=== PATIENT | male | born 1990 | race Caucasian/White ===

== ENCOUNTER 2016-07-17 15:55 | Emergency (ER) | END 2016-07-17 16:24 | disposition left against medical advice (07) | LOC: UCCORT 15:55 | DX: Z53.21 Procedure and treatment not carried out due to patient leaving prior to being seen by health care provider (principal) ==

== ENCOUNTER 2018-08-22 12:28 | Emergency (ER) | payer OTHER ==
[2018-08-22 13:08] VITALS: BP 160/79
--- NOTE | 2018-08-22 13:19 | UC ---
Dental HPI - HPI Summary HPI Summary: 28-year-old male presents with 2-3 day history of dental pain. Complaints of pain to right upper bicuspid and right lower molar. States he does not have a dentist appointment scheduled at this time. Denies fever, chills, facial swelling, trismus, drainage, dysphasia, or difficulty breathing. - History of Current Complaint Chief Complaint: UCDentalProblem Stated Complaint: DENTAL PAIN Time Seen by Provider: 08/22/18 13:04 Hx Obtained From: Patient Pain Intensity: 7 - Allergies/Home Medications Allergies/Adverse Reactions: Allergies Allergy/AdvReac Type Severity Reaction Status Date / Time No Known Allergies Allergy Verified 08/22/18 13:08 Home Medications: Home Medications Losartan TAB* [Cozaar TAB*] 25 mg PO DAILY 08/22/18 [History Confirmed 08/22/18] Metoprolol Tartrate TAB* [Lopressor TAB*] 50 mg PO DAILY 08/22/18 [History Confirmed 08/22/18] PMH/Surg Hx/FS Hx/Imm Hx Cardiovascular History: Hypertension - Surgical History Surgical History: None - Family History Known Family History: Positive: Non-Contributory - Social History Occupation: Employed Full-time Lives: With Family Alcohol Use: None Substance Use Type: None Smoking Status (MU): Never Smoked Tobacco Review of Systems All Other Systems Reviewed And Are Negative: Yes Constitutional: Negative: Fever, Chills ENT: Positive: Dental Pain. Negative: Sore Throat, Other - Trismus Respiratory: Positive: Negative Cardiovascular: Positive: Negative Gastrointestinal: Positive: Negative Genitourinary: Positive: Negative Musculoskeletal: Positive: Negative Neurological: Positive: Negative Is Patient Immunocompromised?: Yes Physical Exam - Summary Physical Exam Summary: GENERAL APPEARANCE: Well developed, well nourished, alert and cooperative, and appears to be in no acute distress. EYES: Conjunctiva clear. No drainage. PERRL, EOM intact. Vision is grossly intact. EARS: External auditory canals and tympanic membranes clear, hearing grossly intact. NOSE: No nasal discharge. THROAT: Pharynx normal. No tonsilar inflammation, swelling, exudate, or lesions. Uvula midline. Overall poor dentition with several teeth in various levels of decay. There is a large dental xu to the right upper first bicuspid with some mild gingival erythema without induration or fluctuance. NECK: Neck supple, non-tender without lymphadenopathy. CARDIAC: Normal S1 and S2. No S3, S4 or murmurs. Rhythm is regular. There is no peripheral edema, cyanosis or pallor. Extremities are warm and well perfused. Capillary refill is less than 2 seconds. Peripheral pulses intact. LUNGS: Clear to auscultation without rales, rhonchi, wheezing or diminished breath sounds. ABDOMEN: Positive bowel sounds. Soft, nondistended, nontender. No guarding or rebound. No masses or hepatosplenomegally. MUSKULOSKELETAL: ROM intact to all extremities. No joint erythema or tenderness. Normal muscular development. Normal gait. SKIN: Skin normal color, texture and turgor with no lesions or eruptions. Triage Information Reviewed: Yes Vital Signs: Initial Vital Signs Temp 97.5 F 08/22/18 13:02 Pulse 74 08/22/18 13:02 Resp 18 08/22/18 13:02 BP 160/79 08/22/18 13:02 Pulse Ox 100 08/22/18 13:02 Vital Signs Reviewed: Yes Dental Complaint Course/Dx - Course Course Of Treatment: 28-year-old male presents with 2-3 day history of dental pain. Complaints of pain to right upper bicuspid and right lower molar. States he does not have a dentist appointment scheduled at this time. Denies fever, chills, facial swelling, trismus, drainage, dysphasia, or difficulty breathing. Afebrile. Vital signs stable. Exam reveals overall poor dentition with several teeth in various levels of decay. There is a large dental xu to the right upper first bicuspid with some mild gingival erythema without induration or fluctuance. The right lower second molar has significant decay and wear down to the gumline with gingival erythema without induration or fluctuance. Will treat for possible dental infection with Augmentin 875 mg twice a day 10 days and provided him naproxen 500 mg twice a day as needed for pain. He is to make an appointment with his dentist at next available. Anticipatory guidance warning symptoms are reviewed with the patient. Verbalizes understanding and agrees with plan of care. - Differential Dx/Diagnosis Differential Diagnosis/Dx: Dental Abscess, Dental Caries, Fractured Tooth, Odontogenic Pain, Peridontic Disease Provider Diagnosis: Pain, dental Discharge - Sign-Out/Discharge Documenting (check all that apply): Patient Departure All imaging exams completed and their final reports reviewed: No Studies - Discharge Plan Condition: Stable Disposition: HOME Prescriptions: Amoxicillin/Clavulanate TAB* [Augmentin TAB 875*] 875 mg PO BID #20 tab Naproxen [Naproxen 500 mg tab] 500 mg PO Q12HR #30 tablet Patient Education Materials: Toothache (ED) Referrals: Rabia Marrero MD [Primary Care Provider] - Additional Instructions: Start Augmentin 875 mg 1 tab twice a day for 10 days. Take naproxen 500 mg 1 tab every 12 hours as needed for pain. Be sure to rinse your mouth out with a warm salt water solution after every time you eat to remove any debris. Make an appointment with your dentist at next available appointment. Seek immediate medical attention in the emergency room if you develop fever greater than 100.5 F, you are unable to open of close your mouth, are unable to swallow, have difficulty breathing, or any worsening of symptoms. - Billing Disposition and Condition Condition: STABLE Disposition: Home
== END 2018-08-22 13:32 | disposition home or self-care (01) ==
LOC: UCCORT 12:28
DX: K08.89 Other specified disorders of teeth and supporting structures (principal); I10 Essential (primary) hypertension; Z79.899 Other long term (current) drug therapy
CPT/HCPCS: 99212; G0463

== ENCOUNTER 2018-11-05 09:05 | Emergency (ER) | payer OTHER ==
--- OUTSIDE RECORDS SUMMARY | 2018-11-05 09:18 | XMS REPORT | Continuity of Care Document ---
:1990 External Reference #:[id number] Author Name Mark Ridley N.P. Address [address] [facility] [address] [place] [address] Care Team Providers Name Role Phone Rabia Marrero MD Care Team Information Mail Caller Unavailable Payers Date Identification Numbers Payment Provider Subscriber Effective: Policy Number: [id number] Sanjiv Evans 2018 Group Name: [employer] [address] PayID: [id number] [place] [address] Effective: 2015 Policy Number: Sanjiv Care Roderick Evans [id number] Expires: 2018 PayID: [id number] [address] [place] [address] Expires: 2018 Policy Number: Medicaid/[facility] Ricci Evans [id number] PayID: [id number] [address] [place] [address] Family History Date Family Member(s) Observation Comments Father 46 Father No Current Problems Mother due to At Age 40 () Mother due to Pneumonia () Children None First Brother 19 First Brother Asthma Social History Type Date Description Comments Sex Unknown Marital Status Legal Status: Never Tobacco Use Start: Unknown Current Smokeless Tobacco User, Uses 4 Times Daily ETOH Use Occasionally consumes alcohol Tobacco Use Start: Unknown Patient has never smoked Allergies, Adverse Reactions, Alerts Description No Known Drug Allergies Medications Active Medications SIG Qnty Indications Ordering Date Provider Atorvastatin Calcium 1 by mouth every 30tabs E78.2 Rabia Marrero, 2018 day M.D. 10mg Tablets Nicorette chew 1 piece by 120units F17.200 Rabia Marrero, 09/30/2018 4mg Gum mouth 24 times M.D. per day for 30 minute as needed for Chewing Tobacco cessation Claritin 1 by mouth every 30tabs H65.23 [facility] 05/06/2018 10mg Tablets day M.D. Norvasc take one tablet 30tabs I10 [facility], 06/26/2017 10mg Tablets by mouth every M.D. day Omeprazole 1 by mouth every 90caps K21.0 [facility], 09/05/2015 40mg day M[address]D. Capsules DR Metoprolol Succinate 1 by mouth every 30tabs I10 [facility] ., ER day M.D. 100mg Tablets ER 24HR Fluticasone spray one spray 48gm J30.9 [facility], Propionate in each nostril M.D. 50mcg/Act two times a day Suspension History Medications Mucinex 1 tab by mouth 30tabs J18.0 [facility] 05/22/2018 - 600mg Tablets ER twice a day M., M.D. 09/29/2018 12HR Benzonatate 1 cap by mouth 60caps J18.0 [facility] 05/22/2018 - 100mg every 4 hours as M., M.D. 09/29/2018 Capsules needed Azithromycin 1 tab by mouth 10tabs J18.0 [facility] 05/22/2018 - 500mg every day x 10 M., M.D. 09/29/2018 Tablets days Azithromycin z antonio uad 6tabs J20.9 [facility] 05/06/2018 - 250mg M., M.D. 05/10/2018 Tablets Benzonatate 1 cap by mouth 60caps R05 [facility] 05/06/2018 - 100mg every 4 hours as M., M.D. 09/29/2018 Capsules needed AT Night Mucinex 1 tab by mouth 30tabs J20.9 [facility] 05/06/2018 - 600mg Tablets ER twice a day M., M.D. 09/29/2018 12HR Amoxicillin 2 by mouth twice 40tabs K02.9 [facility] 10/13/2015 - 500mg Tablets a day M., M.D. 10/23/2015 Hydroxyzine HCL 1 tsp by mouth 75ml F41.9 [facility] 09/12/2015 - 25mg/ml three times a M., M.D. 09/12/2015 Solution day as needed Hydroxyzine HCL 1-2 tab by mouth F41.9 [facility] 09/12/2015 - 10mg every day as M., M.D. 09/12/2015 Tablets needed Hydroxyzine HCL 1-2 tsp by mouth 473ml F41.9 [facility] 09/12/2015 - 10mg/5ML three times a M., M.D. 06/05/2017 Solution day as needed Vital Signs Date Vital Result Comment 10/28/2018 8:51am BP Systolic 124 mmHg BP Diastolic 72 mmHg Height 68 inches 5'8" Weight 189.00 lb BMI (Body Mass Index) 28.7 kg/m2 Heart Rate 66 /min Respiratory Rate 18 /min 09/30/2018 11:18am BP Systolic 126 mmHg BP Diastolic 72 mmHg Height 68 inches 5'8" Weight 189.00 lb BMI (Body Mass Index) 28.7 kg/m2 Heart Rate 63 /min Respiratory Rate 18 /min 05/22/2018 11:08am BP Systolic 128 mmHg BP Diastolic 78 mmHg Height 68 inches 5'8" Weight 200.00 lb BMI (Body Mass Index) 30.4 kg/m2 Heart Rate 121 /min Body Temperature 100.3 F Respiratory Rate 16 /min 05/06/2018 1:40pm BP Systolic 142 mmHg BP Diastolic 82 mmHg Height 68 inches 5'8" Weight 203.00 lb BMI (Body Mass Index) 30.9 kg/m2 Heart Rate 102 /min Body Temperature 98.1 F Respiratory Rate 16 /min 01/14/2018 2:00pm BP Systolic 146 mmHg BP Diastolic 88 mmHg Height 68 inches 5'8" Weight 203.00 lb BMI (Body Mass Index) 30.9 kg/m2 Heart Rate 82 /min Respiratory Rate 16 /min 10/06/2017 8:59am BP Systolic 154 mmHg BP Diastolic 92 mmHg Height 68 inches 5'8" Weight 191.00 lb BMI (Body Mass Index) 29.0 kg/m2 Heart Rate 102 /min Respiratory Rate 16 /min 09/25/2017 1:07pm BP Systolic 160 mmHg BP Diastolic 110 mmHg Height 68 inches 5'8" Weight 188.00 lb BMI (Body Mass Index) 28.6 kg/m2 Heart Rate 70 /min Respiratory Rate 18 /min 09/08/2017 8:01am BP Systolic 140 mmHg BP Diastolic 82 mmHg Height 68 inches 5'8" Weight 190.00 lb BMI (Body Mass Index) 28.9 kg/m2 Heart Rate 64 /min Respiratory Rate 18 /min 08/28/2017 2:45pm BP Systolic 142 mmHg BP Diastolic 100 mmHg BP Systolic Recheck 142 mmHg P.82 BP Diastolic Recheck 98 mmHg P.82 Height 68 inches 5'8" Weight 190.00 lb BMI (Body Mass Index) 28.9 kg/m2 Heart Rate 99 /min Respiratory Rate 18 /min 07/03/2017 1:16pm BP Systolic 180 mmHg BP Diastolic 108 mmHg BP Systolic Recheck 162 mmHg BP Diastolic Recheck 92 mmHg Height 68 inches 5'8" Weight 170.00 lb BMI (Body Mass Index) 25.8 kg/m2 Heart Rate 88 /min Respiratory Rate 18 /min 06/26/2017 1:09pm BP Systolic 160 mmHg BP Diastolic 110 mmHg BP Systolic Recheck 160 mmHg BP Diastolic Recheck 100 mmHg Height 68 inches 5'8" Weight 170.00 lb BMI (Body Mass Index) 25.8 kg/m2 Heart Rate 72 /min Respiratory Rate 18 /min 10/13/2015 10:19am Weight 171.00 lb Respiratory Rate 18 /min 09/12/2015 9:00am Weight 169.00 lb Respiratory Rate 18 /min 07/20/2015 8:52am BP Systolic 192 mmHg Machine BP Diastolic 103 mmHg Machine BP Systolic Recheck 170 mmHg Manual 180/100- Manual BP Diastolic Recheck 84 mmHg Manual 180/100- Manual Height 67 inches 5'7" Weight 179.00 lb BMI (Body Mass Index) 28.0 kg/m2 Heart Rate 101 /min Body Temperature 97.1 F Respiratory Rate 18 /min Results Test Date Facility Test Result H/L Range Note CBC With Diff 09/30/2018 [facility] WBC 7.6 10*3/uL (4.1-11.0) [address] ([facility])- - RBC 5.38 10*6/uL (4.60-6.10) HGB 16.2 g/dL (13.5-18.0) HCT 47.6 % (41.0-53.0) MCV 88.5 fL (80.0-95.0) MCH 30.1 pg (27.0-32.0) MCHC 34.0 g/dL (32.0-36.0) RDW 13.3 % (10.5-14.5) PLT 240 10*3/uL (150-450) MPV 10.7 fL (7.1-10.7) Neut % 64.1 % (35.0-75.0) Lymph % 21.9 % (16.0-52.0) Rabun % 8.6 % High (0.0-8.0) Eos % 5.0 % (0.0-5.0) Baso % 0.4 % (0.0-4.0) Neut # 4.9 10*3/uL (1.8-7.7) Lymph # 1.7 10*3/uL (1.2-4.8) Rabun # 0.7 10*3/uL (0.0-0.8) Eos # 0.4 10*3/uL (0.0-0.5) Baso # 0.0 10*3/uL (0.0-0.2) CMP 09/30/2018 [facility] Sodium 142 mmol/L (136-145) [address] (607)- - Potassium 4.0 mmol/L (3.6-5.2) Chloride 107 mmol/L (100-108) Co2 27 mmol/L (22-31) Anion Gap 8 mmol/L (7-16) Urea Nitrogen 13 mg/dL (7-24) Creatinine 1.02 mg/dL (0.80-1.30) BUN/Creat Ratio 12.7 RATIO (10.0-20.0) Glucose 64 mg/dL Low (70-99) Calcium 9.3 mg/dL (8.4-10.2) Total Protein 7.4 g/dL (6.4-8.2) Albumin 4.3 g/dL (3.5-4.6) Globulin 3.1 g/dL (2.7-4.3) Alb/Glob Ratio 1.4 RATIO Alkaline Phosphatase 80 U/L (45-117) Bilirubin,Total 0.5 mg/dL (0.0-1.0) Ast (Sgot) 16 U/L (11-39) Alt (SGPT) 24 U/L (12-78) GFR >60 ml/min/1.73m2 (>59) GFR ( Amer) >60 ml/min/1.73m2 (>59) GFR Interpretation <SEE NOTE> 1 Laboratory test 09/30/2018 [facility] Magnesium 2.2 mg/dL (1.7-2.4) finding [address] [facility] (607)- - TSH,Ultrasensitive @ 0.627 mIU/L (0.360-4.170) Free Thyroxine @ 0.88 ng/dL (0.76-1.46) Lipid Extended Panel 09/30/2018 [facility] Appearance CLEAR (Clear) [address] (607)- - Cholesterol @ 202 mg/dL High (0-200) Triglyceride @ 126 mg/dL (30-200) HDL Cholesterol @ 44 mg/dL (>40) 2 Chol/HDL Ratio 4.6 RATIO 3 Direct LDL @ 135 mg/dL High (<130) 4 VLDL (Calc) 23 mg/dL (0-30) Laboratory test 09/30/2018 [facility] 25 Hydroxy Vit D 39 ng/mL (31- 100) 5 finding [address] [facility] @ (607)- - Hemoglobin A1c 09/30/2018 [facility] Hemoglobin A1c @ 5.4 % (4.0-6.0) 6 [address] (607)- - Est Average Glucose 108 mg/dL Laboratory test 09/08/2017 [facility] Vitamin D Total 38.8 ng/mL N 20 -50 7 finding 25(Oh) Lipid Profile 09/08/2017 [facility] Triglycerides 90 mg/dL 8 (Trig/Chol/HDL) Cholesterol 188 mg/dL 9 HDL Cholesterol 49.3 mg/dL 10 LDL Cholesterol 121 mg/dL 11 Laboratory test 09/08/2017 [facility] TSH (Thyroid 2.12 mcIU/mL N 0.34-5.60 12 finding Stim Horm) Comp Metabolic 09/08/2017 [facility] Sodium 140 mmol/L N 139-145 Panel Potassium 4.1 mmol/L N 3.5-5.0 Chloride 102 mmol/L N 101-111 Co2 Carbon Dioxide 27 mmol/L N 22-32 Anion Gap 11 mmol/L N 2-11 Glucose 88 mg/dL N 70-100 Blood Urea Nitrogen 10 mg/dL N 6-24 Creatinine 0.91 mg/dL N 0.67-1.17 BUN/Creatinine Ratio 11.0 N 8-20 Calcium 9.8 mg/dL N 8.6-10.3 Total Protein 7.3 g/dL N 6.4-8.9 Albumin 4.6 g/dL N 3.2-5.2 Globulin 2.7 g/dL N 2-4 Albumin/Globulin Ratio 1.7 N 1-3 Total Bilirubin 0.30 mg/dL N 0.2-1.0 Alkaline Phosphatase 81 U/L N 34-104 Alt 29 U/L N 7-52 Ast 26 U/L N 13-39 Egfr Non- 99.2 >60 Egfr 127.6 >60 13 CBC Auto Diff 09/08/2017 [facility] White Blood Count 9.9 10^3/uL N 3.5-10.8 Red Blood Count 5.62 10^6/uL High 4.0-5.4 Hemoglobin 17.6 g/dL N 14.0-18.0 Hematocrit 52 % N 42-52 Mean Corpuscular Volume 92 fL N 80-94 Mean Corpuscular Hemoglobin 31 pg N 27-31 Mean Corpuscular HGB Conc 34 g/dL N 31-36 Red Cell Distribution Width 14 % N 10.5-15 Platelet Count 286 10^3/uL N 150-450 Mean Platelet Volume 9.7 um3 N 7.4-10.4 Abs Neutrophils 5.9 10^3/uL N 1.5-7.7 Abs Lymphocytes 1.9 10^3/uL N 1.0-4.8 Abs Monocytes 0.9 10^3/uL High 0-0.8 Abs Eosinophils 1.1 10^3/uL High 0-0.6 Abs Basophils 0.1 10^3/uL N 0-0.2 Abs Nucleated RBC 0 10^3/uL Granulocyte % 60.1 % N 38-83 Lymphocyte % 19.0 % Low 25-47 Monocyte % 9.3 % High 0-7 Eosinophil % 11.0 % High 0-6 Basophil % 0.6 % N 0-2 Nucleated Red Blood Cells % 0.1 1 NORMAL KIDNEY FUNCTION OR MILD DISEASE - GFR >OR=60 CHRONIC KIDNEY DISEASE - GFR 15 - 59 RENAL FAILURE - GFR <15 Est. GFR calculation based on the MDRD study equation, which assumes a steady state for creatinine. Est. GFR should not be used for medication dosing. 2 PER NCEP ATP III GUIDELINES: RESULTS LOWER THAN 40 MG/DL ARE SUGGESTIVE OF INCREASED RISK FOR CORONARY ARTERY DISEASE. RESULTS > OR=TO 60 MG/DL ARE CONSIDERED A NEGATIVE RISK FACTOR. 3 INTERPRETATION OF CHOL-HDL RATIO CHD RISK FEMALE MALE VERY HIGH >8.3 >14.3 HIGH 5.6- 8.3 6.7- 14.3 AVERAGE 3.7- 5.6 4.0- 6.7 BELOW AVERAGE 2.5- 3.7 2.7- 4.0 PROTECTED <2.5 <2.7 4 PER NCEP ATP III GUIDELINES: OPTIMAL < 100 NEAR OPTIMAL 100 - 129 BORDERLINE HIGH 130 - 159 HIGH 160 - 189 VERY HIGH > 189 5 A REVIEW OF THE LITERATURE SUGGESTS THE FOLLOWING RANGES FOR THE CLASSIFICATION OF 25-OH VITAMIN D STATUS: VITAMIN D STATUS 25-OH VITAMIN D DEFICIENCY <20 NG/ML INSUFFICIENCY 20-30 NG/ML SUFFICIENCY 31 - 100 NG/ML TOXICITY > 100 NG/ML A PEDIATRIC REFERENCE RANGE HAS NOT BEEN ESTABLISHED USING THIS METHOD. 6 Performed using [employer] immunoassay. Care must be taken when interpreting HbA1c results in patients with a hemoglobin variant or decreased erythrocyte lifespan. Values 5.7 - 6.4% suggest prediabetes. Values >=6.5% are diagnostic for diabetes. REFERENCE: DIABETES CARE 2018: 41(S13-S27). 7 [id number] 8 Desirable: <150 Borderline High: 150-199 High: 200-499 Very High: >500 9 Desirable: <200 Borderline High: 200-239 High: >239 10 Low: <40 Desirable: 40-60 High: >60 11 Desirable: <100 Near Optimal: 100-129 Borderline High: 130-159 High: 160-189 Very High: >189 12 [id number] 13 Because ethnic data is not always readily available, this report includes an eGFR for both -Americans and non- Americans. The National Kidney Disease Education Program (NKDEP) does not endorse the use of the MDRD equation for patients that are not between the ages of 18 and 70, are , have extremes of body size, muscle mass, or nutritional status, or are non- or non-. According to the National Kidney Foundation, irrespective of diagnosis, the stage of the disease is based on the level of kidney function: Stage Description GFR(mL/min/1.73 m(2)) 1 Kidney damage with normal or decreased GFR 90 2 Kidney damage with mild decrease in GFR 60-89 3 Moderate decrease in GFR 30-59 4 Severe decrease in GFR 15-29 5 Kidney failure <15 (or dialysis) Procedures Date Code Description Status 05/22/2018 12268 Spirometry Completed 05/22/2018 59676 Tympanometry Completed 05/06/2018 46443 Spirometry Completed 05/06/2018 43568 Tympanometry Completed 06/26/2017 30866 Visual Screening Test Completed 06/26/2017 96914 EKG Completed 06/26/2017 21927 Audiometry, Bekesy, Screening Completed 07/20/2015 14186 Visual Screening Test Completed 07/20/2015 51449 Audiometry, Bekesy, Screening Completed Encounters Type Date Location Provider Dx Diagnosis Office Visit 10/28/2018 [facility] Mark Ridley, I10 Essential ( primary) 9:00a N.P. hypertension L20.9 Atopic dermatitis, unspecified J30.9 Allergic rhinitis, unspecified F41.9 Anxiety disorder, unspecified H52.13 Myopia, bilateral K21.0 Gastro-esophageal reflux disease with esophagitis K30 Functional dyspepsia E78.2 Mixed hyperlipidemia E55.9 Vitamin D deficiency, unspecified R05 Cough R09.81 Nasal congestion J20.9 Acute bronchitis, unspecified J18.0 Bronchopneumonia, unspecified organism H92.03 Otalgia, bilateral H65.23 Chronic serous otitis media, bilateral F17.200 Nicotine dependence, unspecified, uncomplicated R73.01 Impaired fasting glucose Office Visit 09/30/2018 11:30a [facility] Mark Ridley, I10 Essential (primary) N.P. hypertension L20.9 Atopic dermatitis, unspecified J30.9 Allergic rhinitis, unspecified F41.9 Anxiety disorder, unspecified H52.13 Myopia, bilateral K21.0 Gastro-esophageal reflux disease with esophagitis K30 Functional dyspepsia E78.2 Mixed hyperlipidemia E55.9 Vitamin D deficiency, unspecified R05 Cough R09.81 Nasal congestion J20.9 Acute bronchitis, unspecified J18.0 Bronchopneumonia, unspecified organism H92.03 Otalgia, bilateral H65.23 Chronic serous otitis media, bilateral F17.200 Nicotine dependence, unspecified, uncomplicated R73.01 Impaired fasting glucose Office Visit 05/22/2018 11:45a [facility] Mark Ridley, I10 Essential (primary) N.P. hypertension L20.9 Atopic dermatitis, unspecified J30.9 Allergic rhinitis, unspecified F41.9 Anxiety disorder, unspecified H52.13 Myopia, bilateral K21.0 Gastro-esophageal reflux disease with esophagitis K30 Functional dyspepsia E78.2 Mixed hyperlipidemia E55.9 Vitamin D deficiency, unspecified R05 Cough R09.81 Nasal congestion J20.9 Acute bronchitis, unspecified J18.0 Bronchopneumonia, unspecified organism H92.03 Otalgia, bilateral H65.23 Chronic serous otitis media, bilateral Office Visit 05/06/2018 1:30p [facility] Mark Ridley, I10 Essential (primary) N.P. hypertension L20.9 Atopic dermatitis, unspecified J30.9 Allergic rhinitis, unspecified F41.9 Anxiety disorder, unspecified H52.13 Myopia, bilateral K21.0 Gastro-esophageal reflux disease with esophagitis K30 Functional dyspepsia E78.2 Mixed hyperlipidemia E55.9 Vitamin D deficiency, unspecified R05 Cough R09.81 Nasal congestion J20.9 Acute bronchitis, unspecified J18.0 Bronchopneumonia, unspecified organism H92.03 Otalgia, bilateral H65.23 Chronic serous otitis media, bilateral Office Visit 01/14/2018 1:45p [facility] Mark Ridley, I10 Essential (primary) N.P. hypertension L20.9 Atopic dermatitis, unspecified J30.9 Allergic rhinitis, unspecified F41.9 Anxiety disorder, unspecified H52.13 Myopia, bilateral K21.0 Gastro-esophageal reflux disease with esophagitis K30 Functional dyspepsia E78.2 Mixed hyperlipidemia E55.9 Vitamin D deficiency, unspecified Office Visit 10/06/2017 8:30a [facility] Janes, Ahmad I10 Essential ( primary) Herac[facility] Quiroz hypertension L20.9 Atopic dermatitis, unspecified J30.9 Allergic rhinitis, unspecified F41.9 Anxiety disorder, unspecified H52.13 Myopia, bilateral K21.0 Gastro-esophageal reflux disease with esophagitis K30 Functional dyspepsia E78.2 Mixed hyperlipidemia E55.9 Vitamin D deficiency, unspecified Office Visit 09/25/2017 1:15p [facility] Janes, Ahmad I10 Essential ( primary) Heraclio Quiroz hypertension L20.9 Atopic dermatitis, unspecified J30.9 Allergic rhinitis, unspecified F41.9 Anxiety disorder, unspecified H52.13 Myopia, bilateral K21.0 Gastro-esophageal reflux disease with esophagitis K30 Functional dyspepsia E78.2 Mixed hyperlipidemia E55.9 Vitamin D deficiency, unspecified Office Visit 09/08/2017 8:00a [facility], Ahmad I10 Essential ( primary) Heraclio Quiroz hypertension L20.9 Atopic dermatitis, unspecified J30.9 Allergic rhinitis, unspecified F41.9 Anxiety disorder, unspecified H52.13 Myopia, bilateral K21.0 Gastro-esophageal reflux disease with esophagitis K30 Functional dyspepsia E78.2 Mixed hyperlipidemia E55.9 Vitamin D deficiency, unspecified Office Visit 08/28/2017 2:45p [facility] Janes, Ahmad I10 Essential ( primary) Heraclio Quiroz hypertension L20.9 Atopic dermatitis, unspecified J30.9 Allergic rhinitis, unspecified F41.9 Anxiety disorder, unspecified H52.13 Myopia, bilateral K21.0 Gastro-esophageal reflux disease with esophagitis K30 Functional dyspepsia E78.2 Mixed hyperlipidemia E55.9 Vitamin D deficiency, unspecified Office Visit 07/03/2017 1:30p [facility] Janes, Ahmad I10 Essential ( primary) Heraclio Quiroz hypertension L20.9 Atopic dermatitis, unspecified J30.9 Allergic rhinitis, unspecified F41.9 Anxiety disorder, unspecified H52.13 Myopia, bilateral K21.0 Gastro-esophageal reflux disease with esophagitis K30 Functional dyspepsia Office Visit 06/26/2017 1:15p [facility] Rabia Marrero I10 Essential ( primary) Her[facility]lio Quiroz hypertension L20.9 Atopic dermatitis, unspecified J30.9 Allergic rhinitis, unspecified F41.9 Anxiety disorder, unspecified H52.13 Myopia, bilateral K21.0 Gastro-esophageal reflux disease with esophagitis K30 Functional dyspepsia Z00.01 Encounter for general adult medical exam w abnormal findings Z68.25 Body mass index (BMI) 25.0-25.9, adult Office Visit 10/13/2015 11:30a [facility] Rabia Marrero K21.0 Gastro- esophageal Heraclio Quiroz reflux disease with esophagitis K30 Functional dyspepsia I10 Essential (primary) hypertension L20.9 Atopic dermatitis, unspecified J30.9 Allergic rhinitis, unspecified F41.9 Anxiety disorder, unspecified H52.13 Myopia, bilateral K02.9 Dental caries, unspecified R03.0 Elevated blood-pressure reading, w/o diagnosis of htn Office Visit 09/12/2015 9:00a [facility] Rabia Marrero K21.0 Gastro- esophageal Heraclio Quiroz reflux disease with esophagitis K30 Functional dyspepsia I10 Essential (primary) hypertension L20.9 Atopic dermatitis, unspecified J30.9 Allergic rhinitis, unspecified F41.9 Anxiety disorder, unspecified H52.13 Myopia, bilateral K02.9 Dental caries, unspecified Office Visit 09/05/2015 10:00a [facility] Rabia Marrero K21.0 Gastro- esophageal Heraclio Quiroz reflux disease with esophagitis K30 Functional dyspepsia I10 Essential (primary) hypertension L20.9 Atopic dermatitis, unspecified J30.9 Allergic rhinitis, unspecified F41.9 Anxiety disorder, unspecified H52.13 Myopia, bilateral K02.9 Dental caries, unspecified Office Visit 07/20/2015 8:45a [facility] Rabia Marrero Z00.01 Encounter for Heraclio Quiroz general adult medical exam w abnormal findings I10 Essential (primary) hypertension L20.9 Atopic dermatitis, unspecified J30.9 Allergic rhinitis, unspecified F41.9 Anxiety disorder, unspecified H52.13 Myopia, bilateral K02.9 Dental caries, unspecified Z68.28 Body mass index (BMI) 28.0-28.9, adult Plan of Treatment Future Appointment(s):01/27/2019 9:00 am - Mark Ridley N.P. at [facility]
[2018-11-05 09:26] VITALS: BP 137/82
--- NOTE | 2018-11-05 10:11 | UC ---
Dental HPI - HPI Summary HPI Summary: 28-year-old male presents with complaints of 1 day history of right upper dental pain that started after he was chewing some gum. States overnight he developed some facial swelling and increased pain. Has not taken any over-the- counter analgesics. States he took one dose of Augmentin 875 mg that he had left over from his last visit for the same complaint. Does not currently have a dental appointment scheduled. Denies fever, chills, drainage, trismus, dysphagia, or difficulty breathing. - History of Current Complaint Chief Complaint: UCDentalProblem Stated Complaint: RIGHT SIDE DENTAL PAIN Time Seen by Provider: 11/05/18 10:02 Hx Obtained From: Patient Pain Intensity: 6 - Allergies/Home Medications Allergies/Adverse Reactions: Allergies Allergy/AdvReac Type Severity Reaction Status Date / Time No Known Allergies Allergy Verified 11/05/18 09:28 PMH/Surg Hx/FS Hx/Imm Hx Cardiovascular History: Hypertension - Surgical History Surgical History: None - Family History Known Family History: Positive: Non-Contributory - Social History Occupation: Employed Full-time Lives: With Family Alcohol Use: None Substance Use Type: None Smoking Status (MU): Never Smoked Tobacco When Did the Patient Quit Smoking/Using Tobacco: quit chewing tobacco about 1 year ago Review of Systems All Other Systems Reviewed And Are Negative: Yes Constitutional: Negative: Fever, Chills ENT: Positive: Dental Pain Respiratory: Positive: Negative Cardiovascular: Positive: Negative Gastrointestinal: Positive: Negative Genitourinary: Positive: Negative Musculoskeletal: Positive: Negative Neurological: Positive: Negative Is Patient Immunocompromised?: No Physical Exam - Summary Physical Exam Summary: GENERAL APPEARANCE: Well developed, well nourished, alert and cooperative, and appears to be in no acute distress. HEAD: Mild right maxillary facial swelling. MOUTH/THROAT: Pharynx normal No tonsilar inflammation, swelling, exudate, or lesions. Uvula midline. Overall poor dentition with multiple teeth in various stages of decay. Severe decaying of the right upper bicuspid with gingival erythema and edema without induration, fluctuance, or drainage. NECK: Neck supple, non-tender without lymphadenopathy. CARDIAC: Normal S1 and S2. No S3, S4 or murmurs. Rhythm is regular. There is no peripheral edema, cyanosis or pallor. Extremities are warm and well perfused. Capillary refill is less than 2 seconds. Peripheral pulses intact. LUNGS: Clear to auscultation without rales, rhonchi, wheezing or diminished breath sounds. ABDOMEN: Positive bowel sounds. Soft, nondistended, nontender. No guarding or rebound. No masses or hepatosplenomegally. MUSKULOSKELETAL: ROM intact to all extremities. No joint erythema or tenderness. Normal muscular development. Normal gait. SKIN: Skin normal color, texture and turgor with no lesions or eruptions. Triage Information Reviewed: Yes Vital Signs: Initial Vital Signs Temp 98.9 F 11/05/18 09:21 Pulse 94 11/05/18 09:21 Resp 16 11/05/18 09:21 BP 137/82 11/05/18 09:21 Pulse Ox 99 11/05/18 09:21 Vital Signs Reviewed: Yes Dental Complaint Course/Dx - Course Course Of Treatment: 28-year-old male presents with complaints of 1 day history of right upper dental pain that started after he was chewing some gum. States overnight he developed some facial swelling and increased pain. Has not taken any over-the- counter analgesics. States he took one dose of Augmentin 875 mg that he had left over from his last visit for the same complaint. Does not currently have a dental appointment scheduled. Denies fever, chills, drainage, trismus, dysphagia, or difficulty breathing. Afebrile. Vital signs stable. Patient had mild right maxillary facial swelling, overall poor dentition, severe decay of his right upper bicuspid with gingival erythema and edema without induration , fluctuance, or drainage. Remainder of exam was unremarkable. Will treat for likely dental infection with Augmentin 875 mg twice a day 10 days as well as naproxen 500 mg 1 tablet every 12 hours as needed for pain. He was strongly encouraged again to make an appointment with the dentist at the next available to receive definitive care. Anticipatory guidance and warning symptoms were reviewed with the patient. Verbalizes understanding and agrees [id number] - Differential Dx/Diagnosis Differential Diagnosis/Dx: Dental Abscess, Dental Caries, Fractured Tooth, Odontogenic Pain, Peridontic Disease Provider Diagnosis: Pain, dental Discharge - Sign-Out/Discharge Documenting (check all that apply): Patient Departure All imaging exams completed and their final reports reviewed: No Studies - Discharge Plan Condition: Stable Disposition: HOME Prescriptions: Amoxicillin/Clavulanate TAB* [Augmentin TAB 875*] 875 mg PO BID #20 tab Naproxen [Naproxen 500 mg tab] 500 mg PO Q12HR #30 tablet Patient Education Materials: Toothache (ED) Forms: *Work Release Referrals: Rabia Marrero MD [Primary Care Provider] - Additional Instructions: Start Augmentin 875 mg 1 tab twice a day for 10 days. It is important that you complete the entire course even if feeling better. Take naproxen 500 mg 1 tab every 12 hours with food as needed for pain. Be sure to rinse your mouth out with a warm salt water solution after every time you eat to remove any debris. Make an appointment with your dentist at next available appointment. Seek immediate medical attention in the emergency room if you develop fever greater than 100.5 F, you are unable to open of close your mouth, are unable to swallow, have difficulty breathing, or any worsening of symptoms. - Billing Disposition and Condition Condition: STABLE Disposition: Home - Attestation Statements Provider Attestation: Per institutional requirements, I have reviewed the chart, however, I was not consulted specifically or made aware of this patient by the midlevel provider. I did not personally evaluate, interact with , or disposition this patient.
== END 2018-11-05 10:30 | disposition home or self-care (01) ==
LOC: UCCORT 09:05
DX: K08.89 Other specified disorders of teeth and supporting structures (principal); I10 Essential (primary) hypertension; Z87.891 Personal history of nicotine dependence
CPT/HCPCS: 99212; G0463

== ENCOUNTER 2019-01-30 09:13 | Emergency (ER) | payer BC ==
--- OUTSIDE RECORDS SUMMARY | 2019-01-30 09:24 | XMS REPORT | Continuity of Care Document ---
:1990 External Reference #:[id number] Author Name Rabia Marrero M.D. Address [address] [place] [address] [address] [place] [address] Care Team Providers Name Role Phone Rabia Marrero MD - Family Medicine Care Team Information Overlay Operator [phone] Problems Description No Information Available Social History Type Date Description Comments Sex Unknown Tobacco Use Start: Unknown End: Unknown Former Smokeless Tobacco User, Used 4 Times Daily ETOH Use Occasionally consumes alcohol Tobacco Use Start: Unknown Patient has never smoked Smoking Status Reviewed: 01/21/19 Patient has never smoked Allergies, Adverse Reactions, Alerts Description No Known Drug Allergies Medications Active Medications SIG Qnty Indications Ordering Provider Date Amlodipine Besylate take one tablet 90tabs I10 Rabia Marrero, 11/16/2018 10mg by mouth every M.D. Tablets day Atorvastatin Calcium take one tablet 90tabs E78.2 Rabia Marrero, 2018 10mg by mouth every M.D. Tablets day Claritin 1 by mouth every 30tabs H65.23 Rabia Marrero, 05/06/2018 10mg Tablets day M.D. Omeprazole 1 by mouth every 90caps K21.0 Rabia Marrero, 09/05/2015 40mg Capsules day M.D. Metoprolol Succinate take one tablet 90tabs I10 Rabia Marrero, ER by mouth every M.D. 100mg Tablets ER 24HR day Fluticasone Propionate spray one spray 48gm J30.9 Rabia Marrero, in each nostril M.DGui 50mcg/Act Suspension two times a day Losartan take one tablet 90tabs I10 Rabia MarreroGui, Potassium/Hydrochlorot by mouth every M.D. hiazide day 50-12.5mg Tablets History Medications Nicorette chew 1 piece by 120units Rabia MarreroGui, 09/30/2018 - 4mg Gum mouth 24 times per M.D. 01/05/2019 day for 30 minute as needed for Chewing Tobacco cessation Immunizations Description No Information Available Vital Signs Date Vital Result Comment 01/21/2019 12:57pm BP Systolic 122 mmHg BP Diastolic 70 mmHg Height 68 inches 5'8" Weight 182.00 lb BMI (Body Mass Index) 27.7 kg/m2 Heart Rate 68 /min Respiratory Rate 16 /min 10/28/2018 8:51am BP Systolic 124 mmHg BP Diastolic 72 mmHg Height 68 inches 5'8" Weight 189.00 lb BMI (Body Mass Index) 28.7 kg/m2 Heart Rate 66 /min Respiratory Rate 18 /min Results Test Acquired Date Facility Test Result H/L Range Note CBC With Diff 09/30/2018 [facility] WBC 7.6 10*3/uL (4.1-11.0) [facility] ([facility] - RBC 5.38 10*6/uL (4.60-6.10) HGB 16.2 g/dL (13.5-18.0) HCT 47.6 % (41.0-53.0) MCV 88.5 fL (80.0-95.0) MCH 30.1 pg (27.0-32.0) MCHC 34.0 g/dL (32.0-36.0) RDW 13.3 % (10.5-14.5) PLT 240 10*3/uL (150-450) MPV 10.7 fL (7.1-10.7) Neut % 64.1 % (35.0-75.0) Lymph % 21.9 % (16.0-52.0) Pender % 8.6 % High (0.0-8.0) Eos % 5.0 % (0.0-5.0) Baso % 0.4 % (0.0-4.0) Neut # 4.9 10*3/uL (1.8-7.7) Lymph # 1.7 10*3/uL (1.2-4.8) Pender # 0.7 10*3/uL (0.0-0.8) Eos # 0.4 10*3/uL (0.0-0.5) Baso # 0.0 10*3/uL (0.0-0.2) CMP 09/30/2018 [facility] Sodium 142 mmol/L (136-145) [facility] [...] <SEE NOTE> 1 Laboratory test 09/30/2018 [facility] Magnesium 2.2 mg/dL (1.7-2.4) finding [address] [facility] ([facility])- - TSH,Ultrasensitive @ 0.627 mIU/L (0.360-4.170) Free Thyroxine @ 0.88 ng/dL (0.76-1.46) Lipid Extended Panel 09/30/2018 [facility] Appearance CLEAR (Clear) [address] [facility] ([facility])- - Cholesterol @ 202 mg/dL High (0-200) Triglyceride @ 126 mg/dL (30-200) HDL Cholesterol @ 44 mg/dL (>40) 2 Chol/HDL Ratio 4.6 RATIO 3 Direct LDL @ 135 mg/dL High (<130) 4 VLDL (Calc) 23 mg/dL (0-30) Laboratory test 09/30/2018 [facility] 25 Hydroxy Vit D 39 ng/mL (31- 100) 5 finding [address] [facility] (607)- - Hemoglobin A1c 09/30/2018 [facility] Hemoglobin A1c @ 5.4 % (4.0-6.0) 6 [address] [facility] (607)- - Est Average Glucose 108 mg/dL 1 NORMAL KIDNEY FUNCTION OR MILD DISEASE - GFR >OR= 60 CHRONIC KIDNEY DISEASE - GFR 15 - 59 RENAL FAILURE - GFR <15 Est. GFR calculation based on the MDRD study equation, which assumes a steady state for creatinine. Est. GFR should not be used for medication dosing. 2 PER NCEP ATP III GUIDELINES: RESULTS LOWER THAN 40 MG/DL ARE SUGGESTIVE OF INCREASED RISK FOR CORONARY ARTERY DISEASE. RESULTS > OR = TO 60 MG/DL ARE CONSIDERED A NEGATIVE RISK [...] ESTABLISHED USING THIS METHOD. 6 Performed using Helloworldta immunoassay. Care must be taken when interpreting HbA1c results in patients with a hemoglobin variant or decreased erythrocyte lifespan. Values 5.7 - 6.4% suggest prediabetes. Values >=6.5% are diagnostic for diabetes. REFERENCE: DIABETES CARE 2018: 41(S13-S27). Procedures Date Code Description Status 01/21/2019 31713 EKG Completed Medical Devices Description No Information Available Encounters Type Date Location Provider Dx Diagnosis Office Visit 01/21/2019 [facility] Rabia Marrero, I10 Essential ( primary) 1:00p M.D. 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 [...] Impaired fasting glucose Office Visit 09/30/2018 11:30a [facility] Mark Ridley, I10 Essential (primary) N.P. hypertension [...] dependence, unspecified, uncomplicated R73.01 Impaired fasting glucose Assessments Date Code Description Provider 01/21/2019 [facility] (primary) hypertension Rabia Marrero M.D. 01/21/2019 L20.9 Atopic dermatitis, unspecified Rabia Marrero M.D. 01/21/2019 J30.9 Allergic rhinitis, unspecified Rabia Marrero M.D. 01/21/2019 F41.9 Anxiety disorder, unspecified Rabia Marrero M.D. 01/21/2019 H52.13 Myopia, bilateral Rabia Marrero M.D. 01/21/2019 K21.0 Gastro-esophageal reflux disease with Rabia Marrero M.D. esophagitis 01/21/2019 K30 Functional dyspepsia Rabia Marrero M.D. 01/21/2019 E78.2 Mixed hyperlipidemia Rabia Marrero M.D. 01/21/2019 E55.9 Vitamin D deficiency, unspecified Rabia Marrero M.D. 01/21/2019 R73.01 Impaired fasting glucose Rabia Marrero M.D. 01/21/2019 Z00.01 Encounter for general adult medical Rabia Marrero M.D. examination with abnormal findings 01/21/2019 F17.221 Nicotine dependence, chewing tobacco, in Rabia Marrero M.D. remission 10/28/2018 I10 Essential (primary) hypertension Mark Ridley N.PGui 10/28/2018 L20.9 Atopic dermatitis, unspecified Mark Ridley N.PGui 10/28/2018 J30.9 Allergic rhinitis, unspecified Mark Ridley N.PGui 10/28/2018 F41.9 Anxiety disorder, unspecified Mark Ridley N.PGui 10/28/2018 H52.13 Myopia, bilateral Mark Ridley N.P. 10/28/2018 K21.0 Gastro-esophageal reflux disease with Mark Ridley, N.P. esophagitis 10/28/2018 K30 Functional dyspepsia Mark Ridley, N.P. 10/28/2018 E78.2 Mixed hyperlipidemia Mark Ridley, N.P. 10/28/2018 E55.9 Vitamin D deficiency, unspecified Mark Ridley, N.P. 10/28/2018 R05 Cough Mark Ridley, N.P. 10/28/2018 R09.81 Nasal congestion Mark Ridley, N.P. 10/28/2018 J20.9 Acute bronchitis, unspecified Mark Ridley, N.P. 10/28/2018 J18.0 Bronchopneumonia, unspecified organism Mark Ridley, N.P. 10/28/2018 H92.03 Otalgia, bilateral Mark Ridley, N.P. 10/28/2018 H65.23 Chronic serous otitis media, bilateral Mark Ridley, N.P. 10/28/2018 F17.200 Nicotine dependence, unspecified, Mark Ridley, N.P. uncomplicated 10/28/2018 R73.01 Impaired fasting glucose Mark Ridley N.P. 09/30/2018 I10 Essential (primary) hypertension Mark Ridley, N.P. 09/30/2018 L20.9 Atopic dermatitis, unspecified Mark Ridley, N.P. 09/30/2018 J30.9 Allergic rhinitis, unspecified Mark Ridley, N.P. 09/30/2018 F41.9 Anxiety disorder, unspecified Mark Ridley, N.P. 09/30/2018 H52.13 Myopia, bilateral Mark Ridley, N.P. 09/30/2018 K21.0 Gastro-esophageal reflux disease with Mark Ridley, N.PGui esophagitis 09/30/2018 K30 Functional dyspepsia Mark Ridley, N.P. 09/30/2018 E78.2 Mixed hyperlipidemia Mark Ridley, N.P. 09/30/2018 E55.9 Vitamin D deficiency, unspecified Mark Ridley, N.P. 09/30/2018 R05 Cough Mark Ridley, N.P. 09/30/2018 R09.81 Nasal congestion Mark Ridley N.P. 09/30/2018 J20.9 Acute bronchitis, unspecified Mark Ridley, N.P. 09/30/2018 J18.0 Bronchopneumonia, unspecified organism Mark Ridley, N.P. 09/30/2018 H92.03 Otalgia, bilateral Mark Ridley, N.P. 09/30/2018 H65.23 Chronic serous otitis media, bilateral Mark Ridley, N.P. 09/30/2018 F17.200 Nicotine dependence, unspecified, Mark Ridley, N.P. uncomplicated 09/30/2018 R73.01 Impaired fasting glucose Mark Ridley N.P. Plan of Treatment Future Appointment(s):04/20/2019 8:45 am - Rabia Marrero M.D. at [facility]01/21/2019 - Rabia Marrero M.D.I10 Essential (primary) hypertensionComments:CHECK BP TIW ( PRN)DIET AND FLUID COUNSELING LOW SODIUM DIETWT LOSSF/U LABFollow up:3 [id number] Atopic dermatitis, unspecifiedComments :SKIN CARE INSTRUCTIONS LOTION OR BABY OIL 2-3 APPLICATION PER DAYUSE MOISTURIZING SOAPAVOID PROLONGED WATER EXPOSUREAVOID USING HOT WATER IN ILNGNPL42.9 Allergic rhinitis, unspecifiedComments:INCREASE PO FLUID USE ANTIHISTAMINE PRN SECOND HAND SMOKING [id number] Anxiety disorder, unspecifiedComments:COUNCELLING AND REASSURANCE RELAXATION TECHNIQUES DISCUSSEDCOUNSELED RE: STRESSORS IN LIFE AVOID ALLENERGY/HIGH CAFFEINE BVMTEPG38.13 Myopia, bilateralComments:USE GLASSES/ CONTACTSF/U WITH [id number] Gastro-esophageal reflux disease with esophagitisComments: AVOID CAFFEINE, ETOH AND SPICY FOODSTUMS OR MYLANTA PRN CALL WITH PROBLEMS OR [id number] Functional dyspepsiaComments:AVOID CAFFEINE, ETOH AND SPICY FOODSTUMS OR MYLANTA PRN CALL WITH PROBLEMS OR [id number] Mixed hyperlipidemiaComments:DIET REVIEWED CONTINUE DIETWT LOSSF/U LAB FBWE55.9 Vitamin D deficiency, unspecifiedComments:INCREASE EXPOSURE TO SUNREVIEW OF DIETR73.01 Impaired fasting glucoseComments:F/U HGAICFS QAC AN HS PRNLOW GLUCOSE DIETZ00.01 Encounter for general adult medical examination with abnormal findingsComments:GOOD NUTRITION /EXERCISEDENTAL/ FLOSSING/ SELF CAREDROWNING/ SUN SAFETYSEAT BELT/ DRIVING SAFETYSPORT BIKE/ HELMET USESPORTS/ INJURY PREVENTIONVIOLENCE PREVENTION/ GUN SAFETYPARENTING ADVICE"SAFE AT HOME "SEX EDUCATION/ COUNSELINGBREAST/ TESTICULAR SELF EXAMEDUCATION GOALS/ ACTIVITIESLIMIT TV/ INTERNETUSETOBACCO/ ALCOHOL/ DRUGS/ INHALANTSPEER REFUSAL SKILLSSOCIAL INTERACTIONFAMILY FUNCTIONINGSELF CONTROLDEPRESSION/ ANXIETYNEXT APPOINTMENTYEARLY PHYSICAL WELLNESS [id number] Nicotine dependence, chewing tobacco, in remissionComments:ENCOURAGED TO CONTINUE WITH SMOKING CESSATION Functional Status Functional Condition Comment Date Status Glasses Active Soft contacts Active Mental Status Description No Information Available Referrals Description No Information Available
[2019-01-30 09:48] VITALS: BP 127/72
--- NOTE | 2019-01-30 11:18 | UC ---
Throat Pain/Nasal Navneet HPI - HPI Summary HPI Summary: Pt presents with c/o sudden onset of sore throat and scattered "white dots" on tonsils and generalized malaise X 1 day. - History of Current Complaint Chief Complaint: UCGeneralIllness Stated Complaint: SPOTS IN THROAT Time Seen by Provider: 01/30/19 10:09 Hx Obtained From: Patient Onset/Duration: Sudden Onset, Lasting Days, Still Present Severity: Moderate Pain Intensity: 3 Pain Scale Used: 0-10 Numeric Cough: None Associated Signs & Symptoms: Positive: Dysphagia - Epiglottits Risk Factors Epiglottis Risk Factors: Sudden Onset - Allergies/Home Medications Allergies/Adverse Reactions: Allergies Allergy/AdvReac Type Severity Reaction Status Date / Time No Known Allergies Allergy Verified 01/30/19 09:48 PMH/Surg Hx/FS Hx/Imm Hx Previously Healthy: Yes - Surgical History Surgical History: None - Family History Known Family History: Positive: Non-Contributory - Social History Occupation: Employed Full-time Lives: With Family Alcohol Use: None Substance Use Type: None Smoking Status (MU): Never Smoked Tobacco Have You Smoked in the Last Year: No When Did the Patient Quit Smoking/Using Tobacco: quit chewing tobacco about 1 year ago - Immunization History Vaccination Up to Date: Yes Review of Systems All Other Systems Reviewed And Are Negative: Yes Constitutional: Positive: Fatigue Skin: Positive: Negative Eyes: Positive: Negative ENT: Positive: Sore Throat Respiratory: Positive: Negative Cardiovascular: Positive: Negative Gastrointestinal: Positive: Negative Genitourinary: Positive: Negative Motor: Positive: Negative Neurovascular: Positive: Negative Musculoskeletal: Positive: Negative Neurological: Positive: Negative Psychological: Positive: Negative Is Patient Immunocompromised?: No Physical Exam Triage Information Reviewed: Yes Appearance: Well-Appearing Vital Signs: Initial Vital Signs Temp 98.3 F 01/30/19 09:42 Pulse 73 01/30/19 09:42 Resp 16 01/30/19 09:42 BP 127/72 01/30/19 09:42 Pulse Ox 100 01/30/19 09:42 Vital Signs Reviewed: Yes Eye Exam: Normal ENT: Positive: Tonsillar swelling, Tonsillar exudate Dental Exam: Normal Neck exam: Normal Respiratory Exam: Normal Respiratory: Positive: No respiratory distress Cardiovascular Exam: Normal Musculoskeletal Exam: Normal Neurological Exam: Normal Psychological Exam: Normal Skin Exam: Normal Throat Pain/Nasal Course/Dx - Differential Dx/Diagnosis Differential Diagnosis/HQI/PQRI: Mononucleosis, Tonsillitis, URI Provider Diagnosis: Tonsillitis with exudate Discharge ED - Sign-Out/Discharge Documenting (check all that apply): Patient Departure All imaging exams completed and their final reports reviewed: No Studies - Discharge Plan Condition: Stable Disposition: HOME Prescriptions: Penicillin VK 500 MG TAB(NF) [Penicillin VK 500 mg Tab] 500 mg PO QID #30 tab Patient Education Materials: Tonsillitis (ED) Referrals: Rabia Marrero MD [Primary Care Provider] - As Soon As Possible - Billing Disposition and Condition Condition: STABLE Disposition: Home
--- NOTE | 2019-02-02 07:15 | UC ---
- Progress Note Progress Note: prelim 2+ yeast throat culture please call pt - Rx sent final culture pending pt should follow-up with PCP - physician referral [email or web address] 02/02/19 Course/Dx - Diagnoses Provider Diagnoses: Tonsillitis with exudate Discharge ED - Sign-Out/Discharge Documenting (check all that apply): Post-Discharge Follow Up All imaging exams completed and their final reports reviewed: No Studies - Discharge Plan Condition: Stable Disposition: HOME Prescriptions: Penicillin VK 500 MG TAB(NF) [Penicillin VK 500 mg Tab] 500 mg PO QID #30 tab Patient Education Materials: Tonsillitis (ED) Referrals: Rabia Marrero MD [Primary Care Provider] - As Soon As Possible - Billing Disposition and Condition Condition: STABLE Disposition: Home
== END 2019-01-30 10:33 | disposition home or self-care (01) ==
LOC: UCCORT 09:13
DX: J03.90 Acute tonsillitis, unspecified (principal); R53.83 Other fatigue
CPT/HCPCS: 87070; 87651; 99212; G0463

== ENCOUNTER 2019-02-13 15:00 | Emergency (ER) | payer BC ==
[2019-02-13 15:41] VITALS: BP 143/72
[2019-02-13] MEDS ORDERED: Tetracaine 0.5% OPTH.SOL 4 ML* 1 DROP BTL RIGHT EYE ONE (15:50)
[2019-02-13] MEDS ORDERED: Fluorescein Sodium TOPICAL* 1 MG TEST STRIP OPHTHALMIC ONE (15:50)
--- NOTE | 2019-02-13 16:28 | UC ---
Eye Complaint HPI - HPI Summary HPI Summary: 28-year-old male presents with complaints of right eye redness, irritation, mild photophobia, and occasional FB sensation today. States he was late reordering his daily contact lenses and has been wearing his current pair for the past few days. Denies eye pain, visual disturbances, tearing, or purulent discharge. - History of Current Complaint Chief Complaint: UCEye Stated Complaint: EYE PAIN Time Seen by Provider: 02/13/19 15:47 Hx Obtained From: Patient Pain Intensity: 1 - Allergies/Home Medications Allergies/Adverse Reactions: Allergies Allergy/AdvReac Type Severity Reaction Status Date / Time No Known Allergies Allergy Verified 01/30/19 09:48 PMH/Surg Hx/FS Hx/Imm Hx Cardiovascular History: Hypertension - Surgical History Surgical History: None - Family History Known Family History: Positive: Non-Contributory - Social History Occupation: Employed Full-time Lives: With Family Alcohol Use: None Substance Use Type: None Smoking Status (MU): Never Smoked Tobacco Have You Smoked in the Last Year: No When Did the Patient Quit Smoking/Using Tobacco: quit chewing tobacco about 1 year ago - Immunization History Vaccination Up to Date: Yes Review of Systems All Other Systems Reviewed And Are Negative: Yes Constitutional: Positive: Negative Skin: Positive: Negative Eyes: Positive: Eye Redness, Photophobia. Negative: Blurred Vision, Diplopia, Drainage ENT: Negative: Sore Throat, Ear Ache, Nasal Discharge, Sinus Congestion, Sinus Pain/Tenderness Respiratory: Negative: Cough Cardiovascular: Positive: Negative Genitourinary: Positive: Negative Musculoskeletal: Positive: Negative Neurological: Positive: Negative Is Patient Immunocompromised?: No Physical Exam - Summary Physical Exam Summary: GENERAL APPEARANCE: Well developed, well nourished, alert and cooperative, and appears to be in no acute distress. EYES: Right eye with conjunctival erythema. No tearing or drainage. Left conjunctiva clear. No drainage. PERRL, EOM intact. Vision is grossly intact. Tetracaine and fluorosceine were instilled into the right eye and the eye was examined under magnification using a Wood's lamp. Small punctate area of fluorsceine uptake noted at the 2 o'clock postition which does not involve the visual field. No foreign body noted. Upper and lower lids were everted as part of the exam. EARS: External auditory canals and tympanic membranes clear, hearing grossly intact. NOSE: No nasal discharge. THROAT: Pharynx normal No tonsilar inflammation, swelling, exudate, or lesions. Uvula midline. Oral cavity normal. Teeth and gingiva in good general condition. NECK: Neck supple, non-tender without lymphadenopathy. CARDIAC: Normal S1 and S2. No S3, S4 or murmurs. Rhythm is regular. There is no peripheral edema, cyanosis or pallor. Extremities are warm and well perfused. Capillary refill is less than 2 seconds. Peripheral pulses intact. LUNGS: Clear to auscultation without rales, rhonchi, wheezing or diminished breath sounds. ABDOMEN: Positive bowel sounds. Soft, nondistended, nontender. No guarding or rebound. No masses or hepatosplenomegally. MUSKULOSKELETAL: ROM intact to all extremities. No joint erythema or tenderness. Normal muscular development. Normal gait. SKIN: Skin normal color, texture and turgor with no lesions or eruptions. Triage Information Reviewed: Yes Vital Signs: Initial Vital Signs Temp 98.8 F 02/13/19 15:36 Pulse 84 02/13/19 15:36 Resp 16 02/13/19 15:36 BP 143/72 02/13/19 15:36 Pulse Ox 98 02/13/19 15:36 Vital Signs Reviewed: Yes Eye Complaint Course/Dx - Course Course Of Treatment: 28-year-old male presents with complaints of right eye redness, irritation, mild photophobia, and occasional FB sensation today. States he was late reordering his daily contact lenses and has been wearing his current pair for the past few days. Denies eye pain, visual disturbances, tearing, or purulent discharge. Afebrile. Vital signs stable. Exam was remarkable for right eye conjunctival erythema, no tearing or drainage, PERRL, EOM intact, and vision is grossly intact. Tetracaine and fluorosceine were instilled into the right eye and the eye was examined under magnification using a Wood's lamp. Small punctate area of fluorsceine uptake noted at the 2 o'clock postition which does not involve the visual field. No foreign body noted. Reviewed findings with the patient and discussed that the corneal lesion could represent an early ulceration versus small abrasion. We'll start him on ofloxacin ophthalmic drops. He is to follow-up with ophthalmology in one to 2 days especially if symptoms are not improving. Anticipatory guidance and warning symptoms were reviewed with the patient. Verbalizes understanding and agrees with plan of care. - Differential Dx/Diagnosis Differential Diagnosis/HQI/PQRI: Conjunctivitis, Corneal Abrasion, Foreign Body , Keratitis, Uveitis, Other - corneal ulcer Provider Diagnosis: Corneal ulcer of right eye Discharge ED - Sign-Out/Discharge Documenting (check all that apply): Patient Departure All imaging exams completed and their final reports reviewed: No Studies - Discharge Plan Condition: Stable Disposition: HOME Prescriptions: Ofloxacin 0.3% (Eye Drop) [Ocuflox OPTH 0.3% (Eye Drop)] 1 - 2 drop RIGHT EYE Q4H #1 btl Patient Education Materials: Corneal Ulcer (ED) Referrals: Rabia Marrero MD [Primary Care Provider] - Rosendo Lewis MD [Medical Doctor] - 2 Days (Follow up in 1-2 days especially if no improvement in symptoms. Call for an appointment.) Additional Instructions: Your eye exam today show a small corneal lesion that may represent a small corneal abrasion or possibly early corneal ulcer. Start ofloxacin ophthalmic drops. Instill 1 to 2 drops in affected eye every 2 to 4 hours for the first 2 days while awake, then instill 1 to 2 drops 4 times daily for an additional 5 days. Do not wear your contacts until you have completed the treatment. Throw out the old pair and use a new pair once you have completed you treatment. Follow up ophthalmology in 1-2 days especially if no improvement in symptoms. Seek immediate medical attention in the emergency room if you develop fever greater than 100.5 F, have pain or swelling of the eye, visual disturbances, loss of vision, or any worsening of symptoms. - Billing Disposition and Condition Condition: STABLE Disposition: Home
== END 2019-02-13 16:51 | disposition home or self-care (01) ==
LOC: UCCORT 15:00
DX: H16.001 Unspecified corneal ulcer, right eye (principal); I10 Essential (primary) hypertension
CPT/HCPCS: 99212; A9270-GY; G0463

== ENCOUNTER 2019-03-20 10:34 | Emergency (ER) | payer BC ==
[2019-03-20 11:00] VITALS: BP 147/55
--- NOTE | 2019-03-20 11:06 | UC ---
Skin Complaint HPI - HPI Summary HPI Summary: Patient presents to urgent care for evaluation of area of erythema and swelling on the right side of his neck. Patient states he first noticed it about a week ago. Patient states he picked and squeezed at it expressed some thick white substance. Patient states since this time the redness has improved but stated still has some mild tenderness. No fevers or chills. No red streaking. No analgesic taken. Patient states he tries not to touch up at some times he finds that he is picking at it. Patient is not immunocompromised. Patient without history of similar. Patient without any difficulty swallowing. Patient 's medications is on in the EMR by the triage nurse will review this visit. - History of Current Complaint Chief Complaint: UCSkin Time Seen by Provider: 03/20/19 11:05 Stated Complaint: SKIN COMPLAINT Hx Obtained From: Patient Onset/Duration: Gradual Onset, Lasting Days Onset Severity: Mild Current Severity: Mild Pain Intensity: 1 Pain Scale Used: 0-10 Numeric Location: Discrete - Allergy/Home Medications Allergies/Adverse Reactions: Allergies Allergy/AdvReac Type Severity Reaction Status Date / Time No Known Allergies Allergy Verified 03/20/19 10:49 Home Medications: Home Medications Cholesterol Med,B? Name 1 tab PO DAILY 03/20/19 [History] PMH/Surg Hx/FS Hx/Imm Hx Previously Healthy: Yes - Surgical History Surgical History: Yes Surgery Procedure, Year, and Place: dental extractions - Family History Known Family History: Positive: Non-Contributory - Social History Occupation: Employed Full-time Lives: With Family Alcohol Use: None Substance Use Type: None Smoking Status (MU): Never Smoked Tobacco Have You Smoked in the Last Year: No When Did the Patient Quit Smoking/Using Tobacco: quit chewing tobacco about 1 year ago - Immunization History Vaccination Up to Date: Yes Review of Systems All Other Systems Reviewed And Are Negative: Yes Skin: Positive: Other - Erythema lesion right side of neck. Physical Exam - Summary Physical Exam Summary: Vital Signs Reviewed: Yes A+Ox3, no distress Eyes: Conjunctiva Clear, ESTHER. EOM intact and full ENT: Hearing grossly normal TM x 2 clear, mmoist, uvula midline, no exudate, no erythema Neck: Positive: Supple Respiratory: Positive: No respiratory distress, No accessory muscle use + CTA throughout no w/r Cardiovascular: RRR nl s1, s2 no m/r CBT <2 sec abd soft + BS nt/nd no guarding, no distension Musculoskeletal Exam: BEDOLLA x 4 without difficulty Strength Intact, ROM Intact Neurological: Positive: Alert, + sensation throughout Psychological: Positive: Normal Response To examiner Skin: Positive: right lateral side of neck, pt with 1x1cm area of erythema within facial hair. mild erythema, mild indurated. no pointing lesions, no drainage no fluctance. mild TTP Triage Information Reviewed: Yes Vital Signs: Initial Vital Signs Temp 98.4 F 03/20/19 10:52 Pulse 88 03/20/19 10:52 Resp 14 03/20/19 10:52 BP 147/55 03/20/19 10:52 Pulse Ox 100 03/20/19 10:52 Course/Dx - Course Course Of Treatment: Patient presents to urgent care for evaluation of an area of erythema and slight edema right lateral side of his neck and his facial hair. Patient states it was worse approximately 5 days ago when she squeezed it. Patient has redness is getting better but still little painful still swollen. No fevers or chills. Not immunocompromised. On exam vital signs are stable. Patient with an area of induration and erythema on the right side of his neck. No drainage. No fluctuance. Unclear whether it's infected follicle versus infected sebaceous cyst. Discussed with patient the options of both. Recommend antibiotics. Warm soaks. Follow PCP. Strict return precautions discussed. Patient comfortable and agreement with plan. Pt with elevated BP - recommended followup with Dr. Marrero - Diagnoses Provider Diagnosis: Infected inclusion cyst Discharge ED - Sign-Out/Discharge Documenting (check all that apply): Patient Departure All imaging exams completed and their final reports reviewed: No Studies - Discharge Plan Condition: Stable Disposition: HOME Prescriptions: DOXYcycline CAP(*) [DOXYcycline 100MG CAP(*)] 100 mg PO BID #20 cap Patient Education Materials: Epidermal Inclusion Cysts (ED) Referrals: Rabia Marrero MD [Primary Care Provider] - Additional Instructions: - Stay well hydrated. Drink plenty of non-alcoholic, non-caffinated beverages - Take antibiotic 2 times a day as prescribed until gone. - Apply warm wet soaks to the inflamed area for 2-3 times a day - Okay to alternate ibuprofen (Advil, Motrin) and Tylenol (acetaminophen) every 3 hours for pain or fever. Take with food. Do NOT take for more than 4-5 days. - Contact your primary care doctor Friday to schedule follow-up appointment. If you have increased pain, swelling, fevers, reddness or other concerns go to the emergency department for futher evaluation and treatment - Billing Disposition and Condition Condition: STABLE Disposition: Home
== END 2019-03-20 11:37 | disposition home or self-care (01) ==
LOC: UCCORT 10:34
DX: L72.0 Epidermal cyst (principal)
CPT/HCPCS: 99212; G0463